=== PATIENT | male | born 1980 | race Two or more races ===

== ENCOUNTER 2017-05-28 06:00 | Day surgery (SDC) | payer OTHER ==
[2017-05-28 07:26] LABS: Basophils # (auto) 0.1 uL; Basophils % (auto) 1.1 % (0.0-2.0); Eosinophils # (auto) 0.2 uL; Eosinophils % (auto) 2.4 % (0.0-7.0); Hematocrit 44.2 % (41.0-53.0); Hemoglobin 14.9 g/dL (13.5-17.5); Lymphocytes # (auto) 2.9 uL; Lymphocytes % (auto) 44.6 % (10.0-50.0); Mean Corpuscular Hemoglobin 29.1 pg (28.0-32.0); Mean Corpuscular Hgb Conc. 33.8 g/dL (32.0-36.0); Mean Corpuscular Volume 86.3 fL (80.0-100.0); Monocytes # (auto) 0.6 uL; Neutrophils # (auto) 2.8 uL; Neutrophils % (auto) 42.9 % (37.0-80.0); Nucleated Red Blood Cells % 0.2 %; Platelet Count (auto) 222 10^3/uL (140-450); Red Blood Cells 5.13 10^6/uL (4.5-5.90); Red Cell Distribution Width 13.5 % (11.8-14.3); White Blood Cell 6.5 10^3/uL (4.4-10.8)
[2017-05-28 07:44] LABS: INR 0.98 (0.9-1.15); Partial Thromboplastin Time 24.4 sec (22.64-33.71); Prothrombin Time 10.7 sec (9.37-12.3)
[2017-05-28] MEDS ORDERED: NALOXONE HCL 0.4 MG/ML VIAL ONE (08:07)
[2017-05-28] MEDS ORDERED: LIDOCAINE VISCOUS 2% 15ML UD ONE (08:07)
[2017-05-28] MEDS ORDERED: SODIUM CHLORIDE LOCK 10 ML ONE (08:07)
[2017-05-28] MEDS ORDERED: FLUMAZENIL 0.1 MG/ML INJ 10ML MDV IV ONE (08:07)
[2017-05-28] MEDS ORDERED: diphenhdrAMINE HCL 50 MG/1 ML VL ONE (08:08)
[2017-05-28] MEDS: MIDAZOLAM HCL 5 MG/ML-1ML VIAL ONE ×2 (09:52→09:57)
[2017-05-28] MEDS: fentaNYL CITRATE 100 MCG/2 ML VL ONE ×2 (09:52→09:57)
[2017-05-28 10:48] VITALS: BP 123/76
== END 2017-05-28 10:48 | disposition home or self-care (01) ==
LOC: GI 06:00
PROVIDERS: ATTEND Internal Medicine Gastroenterology
DX: R10.13 Epigastric pain (principal)
CPT/HCPCS: 36415; 43239; 85025; 85610; 85730; J1200; J2250; J3010; 99152